=== PATIENT | female | born 1955 | race Caucasian/White ===

== ENCOUNTER → 2023-08-17 16:49 | Outpatient (REF) | payer OTHER, SELFPAY | LOC: WDC 16:49 | PROVIDERS: ATTENDING PHYSICIAN Family Medicine | DX: Z12.31 Encounter for screening mammogram for malignant neoplasm of breast (principal) | CPT/HCPCS: 77063; 77067 ==

== ENCOUNTER → 2024-07-12 15:55 | Outpatient (REF) | payer MEDICARE, OTHER, SELFPAY | LOC: HWRCS 15:55 | PROVIDERS: ATTENDING PHYSICIAN Internal Medicine Cardiovascular Disease; FAMILY PHYSICIAN Family Medicine | DX: R06.02 Shortness of breath (principal) | CPT/HCPCS: 93306 ==

== ENCOUNTER → 2024-07-19 10:48 | Outpatient (REF) | payer MEDICARE, OTHER, SELFPAY | LOC: RCS 10:48 | PROVIDERS: ATTENDING PHYSICIAN Internal Medicine Cardiovascular Disease; FAMILY PHYSICIAN Family Medicine | DX: R06.02 Shortness of breath (principal) | CPT/HCPCS: 93017 ==

== ENCOUNTER → 2025-01-24 12:05 | Outpatient (REF) | payer MEDICARE, OTHER, SELFPAY | LOC: RAD 12:05 | PROVIDERS: ATTENDING PHYSICIAN Family Medicine | DX: J40 Bronchitis, not specified as acute or chronic (principal); R91.8 Other nonspecific abnormal finding of lung field | CPT/HCPCS: 71046 ==

== ENCOUNTER 2025-02-28 09:59 | Emergency (ER) | payer MEDICARE, OTHER, SELFPAY ==
[2025-02-28 10:04] VITALS: BP 136/84
--- NOTE | 2025-02-28 11:24 | ED.GENMED ---
History of Present Illness
General
Chief Complaint: Headache
Exam Limitations: none
Time Seen by Provider: 02/28/25 11:10
Nursing documentation reviewed up to this point in time: agreed with
History of Present Illness
History of Present Illness:
Patient is a 70-year-old female who presents to the ER for evaluation. Patient reports about a week ago she hit her left posterior head (had alcohol ) and since then has noticed some head discomfort when she coughs. She has had some allergy
symptoms runny nose congestion .she denies any fevers. She was concerned that this head pain is related to her head injury. She is not on blood thinners. She denies any nausea or vomiting. She denies any neck pain. No other injury. She has
been taking zupe-zco-fjgrafg cough and cold medicine. She denies any fever or chills. Patient denies any chest pain shortness breath no other complaints.
Phy Exam
General Physical Exam
General Presentation: no apparent distress
General age: appears stated age
General Skin: warm and dry
General Habitus: normal
General Mental: alert
General Hydration: appears well hydrated
Neurological Exam
Neurological Exam: alert and oriented x3
Musculoskeletal Exam
Musculoskeletal Exam: full ROM
Skin Exam
Skin Exam: normal color and warm/dry
Psychiatric Exam
Psychiatric Exam: normal mood/affect
Course
Orders/Labs/Results
Orders:
Orders
02/28/25 11:30
CT Head W/o Iv Contrast Urgent
Comment:
Reason For Exam: trauma headache
Vital Signs
Initial and Last Documented VS:
Initial Vital Signs
Temp Pulse Resp BP Pulse Ox
98.2 F 66 20 136/84 97
02/28/25 10:04 02/28/25 10:04 02/28/25 10:04 02/28/25 10:04 02/28/25 10:04
Last Documented Vital Signs
Temp Pulse Resp BP Pulse Ox
98.2 F 66 20 136/84 97
02/28/25 10:04 02/28/25 10:04 02/28/25 10:04 02/28/25 10:04 02/28/25 11:31
MDM/Problems Addressed
Differential Diagnosis Includes:
URI , head contusion , less likely intracranial hemorrhage
MDM/Problems Addressed:
Patient has had recent URI symptoms nasal congestion however has also had a headache worse when she coughs. She was concerned because she hit her head last week. Patient presents awake alert no acute distress she is on a blood thinners. Mild
runny nose head CT is negative no obvious head injury on exam likely URI recommend wzjw-inu-yehvetk antihistamines. She has no past medical history of hypertension she may add an antihistamine with a decongestant as discussed.
*Radiology
Radiology exam reviewed: radiology read reviewed
*Pulse Oximetry
SaO2: 97
Oxygen Mode of Delivery: Room air
Patient hypoxic: no
*Critical Care Note
Total Time (30-74mins, 75-104mins- exclusive of procedures): Not Applicable
ED Attending Note
-
Portions of this chart may have been created with voice recognition software.� Occasional wrong word or��sound alike� substitutions may have occurred due to the inherent limitations of voice recognition software.
Discharge Plan
Departure
Patient Disposition: Home (Routine Discharge)
Date of Disposition: 02/28/25
Time of Disposition: 14:16
Patient with high blood pressure during this ER visit?: Yes
Condition: Fair
Covid-19: Not Applicable
Discharge Problem:
URI (upper respiratory infection), Head injury
Instructions: Headache, Adult (DC), BLOOD PRESSURE
Referrals:
Hair Kitchen MD [Family Provider, Family Practice]
Activity Restrictions/Additional Instructions:
Symptoms are consistent with mild upper respiratory viral infection.
Your CT scan was negative.
You may take [id number] antihistamines with decongestant if needed and increase your fluid intake. Follow-up with family doctor in the next several days and return if any worsening of symptoms
Interventions
Interventions:
*Risk Screen - Suicide Last Done: 02/28/25 10:04
*General Assessment Last Done: 02/28/25 10:04
*Neglect/Abuse Screening Last Done: 02/28/25 10:04
ED- Neurological Assessment Last Done: 02/28/25 11:14
Discharge Date and Time
Print Language: MALAY
[2025-02-28 14:31] VITALS: BP 128/70
== END 2025-02-28 15:10 | disposition home or self-care (01) ==
LOC: EMR 09:59
PROVIDERS: EMERGENCY PHYSICIAN Student in an Organized Health Care Education/Training Program; FAMILY PHYSICIAN Family Medicine
DX: J06.9 Acute upper respiratory infection, unspecified (principal); S09.90XA Unspecified injury of head, initial encounter; W22.8XXA Striking against or struck by other objects, initial encounter; R03.0 Elevated blood-pressure reading, without diagnosis of hypertension
CPT/HCPCS: 99284; 70450